=== PATIENT | female | born 1975 | race American Indian/Alaskan Native ===

== ENCOUNTER 2016-07-26 23:17 | Emergency (ER) | payer OTHER ==
[2016-07-26] MEDS ORDERED: Sodium Chloride 0.9% 10 ML Syringe FLUSH PRN (23:34)
[2016-07-26] MEDS ORDERED: Labetalol 100 MG/20 ML MDV IVPUSH ONE ×2 (23:35→23:57)
[2016-07-27] MEDS ORDERED: Labetalol 100 MG/20 ML MDV IVPUSH ONE ×2 (00:33→01:07)
[2016-07-27 01:14] VITALS: BP 200/113
[2016-07-27] MEDS ORDERED: Furosemide 40 MG/4 ML VIAL IVPUSH ONE (01:27)
--- NOTE | 2016-07-27 01:36 | EDM.PDOC ---
ED HPI GENERAL MEDICAL PROBLEM - General Chief Complaint: General Stated Complaint: HIGH BLOOD PRESSURE Time Seen by Provider: 07/26/16 23:34 Source of Information: Reports: Patient, RN notes reviewed - History of Present Illness INITIAL COMMENTS - FREE TEXT/NARRATIVE: 40-year-old female has been brought to the ED by private vehicle from the [facility] for evaluation of severe hypertension. Patient states that she did have some difficulty with known hypertension about 2 years ago when she was dealing with a severe elbow injury. She was on medication for a period of time, her blood pressure got better and now she has been off medicine for quite a while. She apparently was just admitted to the [facility] today. I don't know what all of her readings have been at the [facility] but there was a reading of around 260/130 prior to transport. SHe states she does feel pressure in the posterior base of her upper neck. She has no other headache. SHe has had some mild nausea but no vomiting. No chest or abdominal pain. No difficulty breathing. She has had some general achiness. She has smoked in the past but not currently. At this time she is taking no regular prescription medications. Posterior Neck Pain Score (Numeric/FACES): 5 - Related Data Allergies Allergy/AdvReac Type Severity Reaction Status Date / Time acetaminophen [From Percocet] Allergy Hives Verified 07/26/16 23:30 oxycodone [From Percocet] Allergy Hives Verified 07/26/16 23:30 Penicillins Allergy Hives Verified 07/26/16 23:31 tramadol [From Ultram] Allergy Hives Verified 07/26/16 23:31 Home Meds: Home Meds amLODIPine [Norvasc] 10 mg PO BID 07/26/16 [History] Furosemide 40 mg PO DAILY #30 tablet 07/27/16 [Rx] Past Medical History Cardiovascular History: Reports: Hypertension Musculoskeletal History: Reports: Fracture Psychiatric History: Reports: Addiction - Past Surgical History Musculoskeletal Surgical History: Reports: Other (see below) Other Musculoskeletal Surgeries/Procedures:: elbow surgery Social & Family History - Tobacco Use Smoking Status *Q: Former Smoker Used Tobacco, but Quit: No - Caffeine Use Caffeine Use: Reports: None - Recreational Drug Use Recreational Drug Use: Yes Drug Use in Last 12 Months: Yes Recreational Drug Type: Reports: Cocaine, Marijuana/Hashish, Methamphetamine Recreational Drug Use Frequency: Monthly ED ROS GENERAL - Review of Systems Review Of Systems: See Below Constitutional: Denies: fever, chills, diaphoresis HEENT: Denies: Sinus problem, Throat pain, Vision change Respiratory: Denies: Shortness of Breath, Wheezing, Pleuritic Chest Pain Cardiovascular: Denies: Chest pain GI/Abdominal: Reports: Nausea (Gone). Denies: Abdominal pain, Vomiting : Reports: no symptoms Musculoskeletal: Reports: other (Generalized achiness) Skin: Denies: rash Neurological: Reports: Headache (More of posterior upper neck discomfort). Denies: Numbness, Tingling, Trouble Speaking, Difficulty Walking, Weakness ED EXAM, GENERAL - Physical Exam Exam: See Below General Appearance: alert, no apparent distress Eye Exam: bilateral eye: PERRL Throat/Mouth: Normal inspection, Normal voice Head: atraumatic. No: facial swelling Neck: supple, full range of motion. No: lymphadenopathy (L), lymphadenopathy (R ) Respiratory/Chest: no respiratory distress, lungs clear, normal breath sounds. No: rales, rhonchi, wheezing Cardiovascular: regular rate, rhythm GI/Abdominal: soft, non tender Back Exam: No: CVA tenderness (L), CVA tenderness (R) Extremities: normal inspection. No: pedal edema, leg pain Neurological: alert, oriented, no motor/sensory deficits Skin Exam: Warm, Dry, Normal color EKG INTERPRETATION EKG Date: 07/27/16 Rhythm: NSR [place]: normal P-wave: present QRS: normal ST-T: other (Mild upsloping ST elevation in V2 and V3 there is T-wave flattening in V4, 5 and 6) Course - Vital Signs Last Recorded V/S: Last Vital Signs Temp 98.1 F 07/26/16 23:24 Pulse 68 07/27/16 01:13 Resp 18 07/26/16 23:24 BP 200/113 H 07/27/16 01:13 Pulse Ox 99 07/26/16 23:24 - Orders/Labs/Meds Orders: Active Orders 24 hr Category Date Time Status EKG 12 Lead [EKG Documentation Completion] [RC] STAT Care 07/26/16 23:41 Active Peripheral IV Care [RC] . DIRECTED Care 07/26/16 23:35 Active Chest 1V Frontal [CR] Stat Exams 07/26/16 23:35 Taken UA W/MICROSCOPIC [URIN] Stat Lab 07/26/16 23:41 Uncollected Sodium Chloride 0.9% [Saline Flush] Med 07/26/16 23:34 Active 10 ml FLUSH ASDIRECTED PRN Peripheral IV Insertion Adult [OM.PC] Stat Oth 07/26/16 23:35 Ordered Medication Orders Sodium Chloride (Saline Flush) 10 ml FLUSH ASDIRECTED PRN PRN Reason: Keep Vein Open Last Admin: 07/26/16 23:41 Dose: 10 ml Labs: Laboratory Tests 07/26/16 07/26/16 Range/Units 23:46 23:46 WBC 7.38 (3.98-10.04) K/mm3 RBC 4.91 (3.98-5.22) M/mm3 Hgb 14.9 (11.2-15.7) gm/L Hct 43.3 (34.1-44.9) % MCV 88.2 (79.4-94.8) fl MCH 30.3 (25.6-32.2) pg MCHC 34.4 (32.2-35.5) g/dl RDW Std Deviation 44.5 (36.4-46.3) fL Plt Count 282 (182-369) K/mm3 MPV 9.8 (9.4-12.3) fl Neut % (Auto) 50.0 (34.0-71.1) % Lymph % (Auto) 37.4 (19.3-51.7) % Hendricks % (Auto) 8.4 (4.7-12.5) % Eos % (Auto) 3.1 (0.7-5.8) Baso % (Auto) 0.8 (0.1-1.2) % Neut # (Auto) 3.69 (1.56-6.13) K/mm3 Lymph # (Auto) 2.76 (1.18-3.74) K/mm3 Hendricks # (Auto) 0.62 H (0.24-0.36) K/mm3 Eos # (Auto) 0.23 (0.04-0.36) K/mm3 Baso # (Auto) 0.06 (0.01-0.08) K/mm3 Sodium 139 (136-145) mEq/L Potassium 3.4 L (3.5-5.1) mEq/L Chloride 104 (98-107) mEq/L Carbon Dioxide 27 (21-32) mEq/L Anion Gap 11.4 (5-15) BUN 9 (7-18) mg/dL Creatinine 0.9 (0.55-1.02) mg/dL Est Cr Clr Drug Dosing 87.70 mL/min Estimated GFR (MDRD) > 60 (>60) mL/min BUN/Creatinine Ratio 10.0 L (14-18) Glucose 94 (74-106) mg/dL Calcium 9.2 (8.5-10.1) mg/dL Total Bilirubin 0.8 (0.2-1.0) mg/dL AST 17 (15-37) U/L ALT 22 (14-59) U/L Alkaline Phosphatase 78 (46-116) U/L Total Protein 8.4 H (6.4-8.2) g/dl Albumin 4.5 (3.4-5.0) g/dl Globulin 3.9 gm/dL Albumin/Globulin Ratio 1.2 (1-2) Meds: Medications Generic Name Dose Route Start Last Admin Trade Name Freq PRN Reason Stop Dose Admin Sodium Chloride 10 ml 07/26/16 23:34 07/26/16 23:41 Saline Flush FLUSH 10 ml ASDIRECTED PRN Administration Keep Vein Open Discontinued Medications Generic Name Dose Route Start Last Admin Trade Name Freq PRN Reason Stop Dose Admin Furosemide 40 mg 07/27/16 01:27 07/27/16 01:33 Lasix IVPUSH 07/27/16 01:28 40 mg NOW ONE Administration Labetalol HCl 20 mg 07/26/16 23:35 07/26/16 23:40 Normodyne IVPUSH 07/26/16 23:36 20 mg ONETIME ONE Administration Protocol Labetalol HCl 40 mg 07/26/16 23:57 07/27/16 00:11 Normodyne IVPUSH 07/26/16 23:58 40 mg ONETIME ONE Administration Protocol Labetalol HCl 40 mg 07/27/16 00:33 07/27/16 00:38 Normodyne IVPUSH 07/27/16 00:34 40 mg ONETIME ONE Administration Protocol Labetalol HCl 40 mg 07/27/16 01:07 07/27/16 01:13 Normodyne IVPUSH 07/27/16 01:08 40 mg ONETIME ONE Administration Protocol - Re-Assessments/Exams Free Text/Narrative Re-Assessment/Exam: 07/27/16 01:46. Labs are as documented. Chemistries look good. Of note creatinine is 0.9. We started with 20 mg labetalol IV in and have followed with three 40 mg doses IV over 1-1/2 hours. With that her blood pressure has trended downward. Most recent reading of 181/111 with a low so far of 171 diastolic. That is enough of a drop for now. Patient feels better. The discomfort at the back of her head and neck is gone. She feels less achy and more relaxed. She continues to have no chest pain or difficulty breathing. When I did mention the name labetalol to her she states that she believes she was on that medication 2 years ago. She also states that she believes she was allergic or reactive to Norvasc in the past with "facial swelling". With all of that in mind I'm going to recommend that her Norvasc be stopped and that she be treated with a combination of furosemide and labetalol. We did give a dose of furosemide 40 mg IV and very short time ago. She did have very slight bilateral lower leg edema on evaluation and therefore is retaining at least a small amount of fluid. I recommend that she started 40 mg furosemide orally daily for the next 3 days and then consider tapering to 20 mg daily. Initial dose of labetalol should be 100 mg twice a day and after 2 days that can be increased to 200 mg twice a day. It is expected that this will be a work in progress. Because she presented so extremely hypertensive her body is likely somewhat used to that. 20-30% blood pressure reduction is a reasonable goal for now and higher than "normal" readings will likely need to be excepted for a period of time with a further goal of trending lower over time. Departure - Departure Time of Disposition: 01:53 Disposition: Home, Self-Care 01 Condition: serious Clinical Impression: Hypertension Qualifiers: Hypertension type: essential hypertension Qualified Code(s): I10 - Essential ( primary) hypertension Prescriptions: Furosemide 40 mg PO DAILY #30 tablet Instructions: Hypertension, [id number] Referrals: PCP,None [Primary Care Provider] - Forms: ED Department Discharge Additional Instructions: Try avoid salty food as best you can, drink plenty of water to maintain hydration, with your history of previous reaction to Norvasc is probably best to stop the Norvasc. I recommending or hypertension be treated with labetalol 100 mg twice daily for 2 days and then increasing the dose to 200 mg twice daily. Furosemide 40 mg every morning for now. After 3 days consideration can be given to reducing that dosage to one half tablet every morning. Her blood pressure will need to continue to be monitored. It is expected that readings will continue to be relatively high for now but should trend downward over time. Regular exercise will also be helpful to - My Orders Last 24 Hours: My Active Orders 07/26/16 23:34 Sodium Chloride 0.9% [Saline Flush] 10 ml FLUSH ASDIRECTED PRN 07/26/16 23:35 Peripheral IV Care [RC] . DIRECTED Chest 1V Frontal [CR] Stat Peripheral IV Insertion Adult [OM.PC] Stat 07/26/16 23:41 EKG 12 Lead [EKG Documentation Completion] [RC] STAT UA W/MICROSCOPIC [URIN] Stat - Assessment/Plan Last 24 Hours: My Active Orders 07/26/16 23:34 Sodium Chloride 0.9% [Saline Flush] 10 ml FLUSH ASDIRECTED PRN 07/26/16 23:35 Peripheral IV Care [RC] . DIRECTED Chest 1V Frontal [CR] Stat Peripheral IV Insertion Adult [OM.PC] Stat 07/26/16 23:41 EKG 12 Lead [EKG Documentation Completion] [RC] STAT UA W/MICROSCOPIC [URIN] Stat
--- NOTE | 2016-07-27 10:54 | CR ---
Chest: Frontal view of the chest was obtained utilizing portable technique. Comparison: No previous study. Heart size appears within normal limits for technique. Mild tortuosity of the thoracic aorta is seen and please correlate if patient has any hypertension as the etiology. Lungs are clear. Bony structures are grossly intact. Impression: 1. Slight tortuosity of the thoracic aorta which can be seen with hypertension. Please correlate. If patient has no hypertension this is incidental. 2. Nothing acute is otherwise seen on portable chest x-ray. Diagnostic code #2
== END 2016-07-27 02:36 | disposition home or self-care (01) ==
LOC: JD.ED 23:17
DX: I10 Essential (primary) hypertension (principal); Z98.890 Other specified postprocedural states; Z87.891 Personal history of nicotine dependence; Z79.899 Other long term (current) drug therapy; Z88.0 Allergy status to penicillin; Z88.5 Allergy status to narcotic agent; Z88.6 Allergy status to analgesic agent
CPT/HCPCS: 36415; 71010; 80053; 81001; 85025; 93005; 96374; 96375; 96376; 99284; J1940; J7050